=== PATIENT | male | born 1960 | race Caucasian/White ===

== ENCOUNTER 2024-12-09 14:25 | Outpatient (AMB) | payer OTHER, SELFPAY ==
--- NOTE | 2024-12-09 14:37 | MHC.OFFVIS ---
Vital Signs 12/09/24 14:52 Height 6 ft 2 in Weight 245 lb BMI 31.5 BP 160/88 H Blood Pressure Location Rt brachial Position Sitting Pulse 66 Pulse Source Pulse Oximeter Pulse Oximetry (%) 96 Oxygen Delivery Method Room Air Intake Visit Reasons: colo screening Intake Note: NEW PATIENT for repeat colo screening. Last colo > 10 years ago. Chief Complaint; C/O intermittent bloating, gas. Pt reports hx of GERD but has not had any issues in many years. 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 No additional sx or concerns at this time. [employer] Worker Required: No Accompanied by: Self / Same As Patient Allergies No Known Allergies Allergy (Verified 12/04/24 13:57) HPI HPI colo screening: Details: 64 year old? male with past medical history of hypertension is here today for pre colonoscopy screening.? Patient was sent to us by his PCP.? Last colonoscopy over 10 years ago. ? Patient denies any gastrointestinal symptoms in the past or at present.? Denies any personal or family history of gastrointestinal disease, colon polyps, or CRC.? Denies history of difficulty with sedation or anesthesia in the past.? Negative for history of sleep apnea.? Denies any history of cardiac, renal, pulmonary, or hepatic disease.?? No history of infectious? diseases like hepatitis A, B, C, HIV or tuberculosis.? Patient is not on any anticoagulation [facility] Medical History Squamous cell cancer of scalp and skin of neck HTN (hypertension) Basal cell carcinoma Exposure to potentially hazardous substance Chronic low back pain Surgical History H/O external ear surgery Social History Alcohol intake: current Comment: 2/3 drinks / every few days. Golf. Patient Tobacco Use Status: Former Tobacco user Use of substances other than those prescribed or required for medical reasons: Yes Substance Use Type: Marijuana Review of Systems Const Denies weight gain and Denies weight loss ENT Reports no additional complaints, Denies dysphagia and Denies odynophagia Card Reports no additional complaints Resp Reports no additional complaints GI Denies abdominal pain, Denies belching, Denies melena, Denies bloating, Denies change in bowel habits, Denies dysphagia, Denies excessive flatus, Denies dyspepsia, Denies heartburn, Denies diarrhea, Denies loose stools, Denies nausea, Denies odynophagia and Denies vomiting Reports no additional complaints Musc Reports no additional complaints Neuro Reports no additional complaints Psych Reports no additional complaints Endo Reports no additional complaints Physical Exam Const General: healthy appearing, no acute distress and well developed Nutritional Appearance: well nourished and obese Orientation/consciousness: patient oriented x3 Resp Effort & Inspection: normal respiratory effort, able to speak in complete sentences, no tracheal deviation and symmetric chest movement Auscultation: clear to auscultation bilaterally Cardio Rate: regular rate GI Inspection: Yes normal to inspection, No distended and Yes obesity Palpation (GI): Soft to palpation, not firm, nontender and No hepatosplenomegaly present Auscultation: normal bowel sounds General: Yes no CVA tenderness Back/Spine/Pelvis Back: no CVA tenderness Skin General skin exam: elasticity normal, turgor normal and dry skin Neuro General: patient oriented x3 Psych Appearance: grossly normal Mental Status: mental status grossly normal Assessment & Plan Assessment & Plan (1) Screen for colon cancer: Code(s): Z12.11 - Encounter for screening for malignant neoplasm of colon Plan Patient denies any GI, cardiac or respiratory symptoms.? Denies any issues with anesthesia in the past.? Denies any history of sleep apnea.? No history infectious diseases in the past or present.? Not on any anticoagulation therapy.? No family or personal history of colon cancer or polyps.? Patient denies melena, hematochezia, unintentional weight loss or ribbon like stools.? Discussed at length the pre-procedure,? prep, diet & medications as well as what to expect prior, during and after the procedure.?? Stressed the importance of good bowel prep.? Recommended the use of Vaseline or Calmoseptine OTC & baby wipes with bowel movements to promote comfort.? ?Patient verbalizes understanding and agrees to plan of care.? He was given the opportunity to ask questions and all questions answered.? We will see him after the procedure.? Medications: New bisacodyl (Dulcolax (bisacodyl)) take 4 tabs at noon the day before your colonoscopy 20 mg (4 x 5 mg) PO ONCE 1 day 4 tabs 0RF Z12.11 - Encounter for screening for malignant neoplasm of colon polyethylene glycol 3350 (Miralax) As directed by gastroenterology department at [facility] 238 grams PO ONCE 238 grams 0RF Z12.11 - Encounter for screening for malignant neoplasm of colon Coding Level of Care Code New Pt Level 3 (87969) Diagnoses Screen for colon cancer Z12.11 Time Spent (min) 40 Comment 30 minutes spent with patient and additional 10 minutes spent reviewing his records
[2024-12-09 14:52] VITALS: BP 160/88; PULSE 66; O2SAT 96; BMI 31.5
--- OUTSIDE RECORDS SUMMARY | 2024-12-09 17:17 | XMS_ITS | Continuity of Care Document ---
Author Name [facility] Organization [facility] Care Team Providers Care [employer] Department Head Name Role Phone [facility] Unavailable Unavailable Problems Combined list of problems from Department of Defense and Veterans Affairs facilities. It does not include entries that were removed or entered in error. 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 Aug 17, 2023 Entered By: CHAGO POLK Comment: s/p Demis x3 2022 at [facility] Diagnosis: ICD-10-CM F43.9 Reaction to severe stress, unspecified Active Diagnosis [facility] Diagnosis: ICD-10-CM M54.50 Low back pain, unspecified Active Diagnosis [facility] Diagnosis: ICD-10-CM C44.91 Basal cell carcinoma of skin, unspecified Active Diagnosis [facility] Diagnosis: ICD-10-CM F43.89 Other reactions to severe stress Active Diagnosis [facility] Diagnosis: ICD-10-CM F43.20 Adjustment disorder, unspecified Active Diagnosis [facility] Diagnosis: ICD-10-CM I10 Essential (primary) hypertension Active Diagnosis [facility] Diagnosis: ICD-10-CM F41.1 Generalized anxiety disorder Active Diagnosis [facility] Diagnosis: ICD-10-CM Z85.828 Personal history of other malignant neoplasm of skin Active Diagnosis [facility] Medications Combined list of outpatient medications from Department of Defense and Veterans Affairs facilities.Medications provided include 1) outpatient medications from the last 15 months, and 2) patient-reported medications. Medication Details Route Status Patient Instructions Prescription Expires Prescription Number Last Dispense Date Ordering Provider Order Date Order Qty Source AMLODIPINE BESYLATE 5MG TAB TAKE ONE TABLET BY MOUTH ONCE DAILY FOR BLOOD PRESSURE /HEART, DO NOT TAKE WITH GRAPEFRU IT JUICE ORAL ACTIVE 11/14/2025 [id number] FURCOLO,T GREG 2024 90 [facility] AMLODIPINE BESYLATE 5MG TAB TAKE ONE TABLET BY MOUTH ONCE DAILY FOR BLOOD PRESSURE /HEART, DO NOT TAKE WITH GRAPEFRU IT JUICE ORAL DISCONT INUED 11/15/2024 [id number] [facility] 2023 90 [facility] CYANOCOBALA MIN 500MCG TAB TAKE ONE TABLET BY MOUTH ONCE DAILY FOR PREVENTI ON OF VITAMIN B12 DEFICIEN CY ORAL ACTIVE 11/14/2025 [id number] 5 FURCOLO,T GREG 2024 100 [facility] [place] [facility] CYANOCOBALA MIN 500MCG TAB TAKE ONE TABLET BY MOUTH ONCE DAILY FOR PREVENTI ON OF VITAMIN B12 DEFICIEN CY ORAL DISCONT INUED 11/15/2024 [id number] [facility] AMMED JAWED 2023 100 [facility] FLUOROURACI L 5% CREAM,TOP APPLY A THIN LAYER TO FACE TWICE DAILY FOR 28 DAYS TOLERATE D. EXPECT REDNESS AND IRRITATI ON. TOPICA L 09/20/2024 [id number] [facility] A 2024 40 [place] IMIQUIMOD 5% CREAM,TOP,P KT,0.25GM APPLY A THIN FILM TOPICALL Y DIRECTED FOR SUPERFIC IAL BASAL CELL CARCINOM A APPLY 5 DAYS A WEEK, LEAVE ON FOR ~8 HOURS, THEN WASH OFF WITH MILD SOAP AND WATER FOR 6 WEEKS. APPLY 5 DAYS A WEEK, LEAVE ON FOR ~8 HOURS, THEN WASH OFF WITH MILD SOAP AND WATER FOR 6 WEEKS. TOPICA L 11/22/2024 [id number] [facility]ELIC[facility]AS TATUM 2023 48 [place] [facility] [place] [facility] LIDOCAINE 5% PATCH APPLY 1 PATCH TOPICALL Y ONCE DAILY FOR NERVE PAIN (LEAVE PATCH ON FOR 12 HOURS, THEN REMOVE PATCH) TOPICA L ACTIVE 11/14/2025 [id number] 5 FURCOLO,T GREG 2024 30 [facility] LIDOCAINE 5% PATCH APPLY 1 PATCH TOPICALL Y ONCE DAILY FOR NERVE PAIN (LEAVE PATCH ON FOR 12 HOURS, THEN REMOVE PATCH) TOPICA L DISCONT INUED 11/15/2024 [id number] [facility] AMMED JAWED 2023 30 [place] [facility] [place] TERBINAFINE HCL 1% CREAM,TOP APPLY A SMALL AMOUNT TOPICALL Y TWICE DAILY TOPICA L ACTIVE 11/14/2025 [id number] FURCOLO,T GREG 2024 60 [facility] [place] TERBINAFINE HCL 1% CREAM,TOP APPLY A SMALL AMOUNT TOPICALL Y TWICE DAILY TOPICA L DISCONT INUED 11/15/2024 [id number] [facility] AMMED JAWED 2023 60 [place] [facility] [place] [facility] TRAMADOL HCL 50MG TAB TAKE ONE TABLET BY MOUTH EVERY SIX HOURS NEEDED FOR PAIN ORAL 10/12/2024 [id number] CINDA AVERY 2024 12 [facility] IELD Immunizations Combined list of available immunizations from the Department of Defense and Veterans Affairs facilities. Immunization Series Date Given Administered By Site Reaction Lot Number CVX Code Drug Automobile Accessories Salesperson Status Comments Source TDAP 2022 CORTNEY CRUM LEFT DELTO ID [id number] complet ed [facility] [place] [facility] [place] [place] Results Combined list of recent chemistry, hematology and other laboratory results from Department of Defense and Veterans Affairs, ranging from 15 months to all on record, depending upon the facility. Order Name Results Value Reference Range Date Interpretation Specimen Comments Source BASIC METABOLIC PANEL (fasting) UREA NITROGEN [MASS/VOLUM E] IN SERUM OR PLASMA 14 mg/dL 7 - 25 11/13 Specimen Type: SERUM No comment entered. Ordering Provider: KINGSTON VILLANUEVA Report Released Date/Time: May 15, 2024 01:38 PM Reporting Lab: [facility] [place] [facility] [address] [address] Performing Lab: [facility] [place] [address] [address] [facility] [place] [facility] BASIC METABOLIC PANEL (fasting) GLUCOSE [MASS/VOLUM E] IN SERUM OR PLASMA 100 mg/dL 65 - 100 11/13 Specimen Type: SERUM No comment entered. Ordering Provider: KINGSTON VILLANUEVA Report Released Date/Time: May 15, 2024 01:38 PM Reporting Lab: [facility] [place] [facility] [address] [address] Performing Lab: [facility] [place] [facility] [address] [address] [facility] [place] [facility] BASIC METABOLIC PANEL (fasting) SODIUM [MOLES/VOLU ME] IN SERUM OR PLASMA 138 mmol/L 135 - 145 11/13 Specimen Type: SERUM No comment entered. Ordering Provider: KINGSTON VILLANUEVA Report Released Date/Time: May 15, 2024 01:38 PM Reporting Lab: [facility] [place] [facility] [address] [address] Performing Lab: [facility] [place] [address] [address] [facility] [place] [facility] BASIC METABOLIC PANEL (fasting) POTASSIUM [MOLES/VOLU ME] IN SERUM OR PLASMA 5.1 mmol/L 3.5 - 5.0 04/02 /2025 H Specimen Type: SERUM No comment entered. Ordering Provider: KINGSTON VILLANUEVA Report Released Date/Time: May 15, 2024 01:38 PM Reporting Lab: [place] [facility] [place] [address] [address] Performing Lab: [place] [facility] [place] [address] [address] [place] [facility] [place] [facility] BASIC METABOLIC PANEL (fasting) CHLORIDE [MOLES/VOLU ME] IN SERUM OR PLASMA 105 mmol/L 100 - 110 11/13 Specimen Type: SERUM No comment entered. Ordering Provider: KINGSTON VILLANUEVA Report Released Date/Time: May 15, 2024 01:38 PM Reporting Lab: [place] [facility] [address] [address] Performing Lab: [place] [facility] [address] [facility]RL TRN [facility]ITALUSE [facility] BASIC METABOLIC PANEL (fasting) CARBON DIOXIDE, TOTAL [MOLES/VOLU ME] IN SERUM OR PLASMA 25 meq/L 20 - 30 11/13 Specimen Type: SERUM No comment entered. Ordering Provider: KINGSTON VILLANUEVA Report Released Date/Time: May 15, 2024 01:38 PM Reporting Lab: [place] [facility] [place] [address] [address] Performing Lab: [place] [facility] [address] [facility] BASIC METABOLIC PANEL (fasting) CALCIUM [MASS/VOLUM E] IN SERUM OR PLASMA 9.1 mg/dL 8.5 - 10.2 11/13 Specimen Type: SERUM No comment entered. Ordering Provider: KINGSTON VILLANUEVA Report Released Date/Time: May 15, 2024 01:38 PM Reporting Lab: [place] [facility] [place] [address] [address] Performing Lab: [place] [facility] [address] [facility] [place] [facility] BASIC METABOLIC PANEL (fasting) CREATININE [MASS/VOLUM E] IN SERUM OR PLASMA 0.73 mg/dL 0.50 - 1.40 11/13 Specimen Type: SERUM No comment entered. Ordering Provider: KINGSTON VILLANUEVA Report Released Date/Time: May 15, 2024 01:38 PM Reporting Lab: [facility]ITALRST[facility]ENT[facility] BLOUNTN [address] [address] Performing Lab: [facility]OSPITALRST. VINCENT'[facility] BLOUNTN [facility] [address] [facility]ITALRST. [facility]INCENT'[facility] BLOUNTN [facility]ITALUSE [facility] BASIC METABOLIC PANEL (fasting) GLOMERULAR FILTRATION RATE/1.73 SQ M.PREDICTED [VOLUME RATE/AREA] IN SERUM, PLASMA OR BLOOD BY CREATININE- BASED FORMULA (CKD-EPI 2020) >90mL/ min 60 11/13 Specimen Type: SERUM No comment entered. Ordering Provider: KINGSTON VILLANUEVA Report Released Date/Time: May 15, 2024 01:38 PM Reporting Lab: [facility] [address] [address] Performing Lab: [facility] HOSPITALRST. VINCENT'S BLOUNTN [facility] [address] [facility] LIPID PANEL FASTING CHOLESTEROL [MASS/VOLUM E] IN SERUM OR PLASMA 191 mg/dL 11/13 Specimen Type: SERUM No comment entered. Ordering Provider: KINGSTON VILLANUEVA Report Released Date/Time: May 15, 2024 01:38 PM Reporting Lab: [facility]OSPITALRST. VINCENT'[facility] BLOUNTN [facility] [address] Performing Lab: [facility] HOSPITALRCRENSHAW COMMUNITY HOSPITALTRN [facility]ITALUSE[address] [address] [facility]N [facility] LIPID PANEL FASTING TRIGLYCERID E [MASS/VOLUM E] IN SERUM OR PLASMA 55 mg/dL 0 - 150 11/13 Specimen Type: SERUM No comment entered. Ordering Provider: KINGSTON VILLANUEVA Report Released Date/Time: May 15, 2024 01:38 PM Reporting Lab: [facility]OSPITALRST. VINCENT'[facility] BLOUNTN [facility] [address] Performing Lab: [facility]RL [facility] [place] [facility] [address] [address] [facility]ITALRL [facility] [place] [facility] LIPID PANEL FASTING CHOLESTEROL IN LDL [MASS/VOLUM E] IN SERUM OR PLASMA BY CALCULATION 115 mg/dL 0 - 129 11/13 Specimen Type: SERUM No comment entered. Ordering Provider: KINGSTON VILLANUEVA Report Released Date/Time: May 15, 2024 01:38 PM Reporting Lab: [facility]ITALRL [place] [place] [facility] [address] [address] Performing Lab: [place] [facility] [place] [facility] [address] [address] [facility]ITALRL TRN [place] [facility] LIPID PANEL FASTING CHOLESTEROL .TOTAL/CHOL ESTEROL IN HDL [MASS RATIO] IN SERUM OR PLASMA 2.9 11/13 Specimen Type: SERUM No comment entered. Ordering Provider: KINGSTON VILLANUEVA Report Released Date/Time: May 15, 2024 01:38 PM Reporting Lab: [facility]ITALRL [facility] [place] [address] [address] Performing Lab: [facility]RL [place] [place] [address] [address] [facility]OSPITALRCRENSHAW COMMUNITY HOSPITALTRN [place] [facility] LIPID PANEL FASTING CHOLESTEROL IN HDL [MASS/VOLUM E] IN SERUM OR PLASMA 65 mg/dL 40 - 60 11/13 H Specimen Type: SERUM No comment entered. Ordering Provider: KINGSTON VILLANUEVA Report Released Date/Time: May 15, 2024 01:38 PM Reporting Lab: [facility]ITALRL [place] [place] [address] [address] Performing Lab: [facility]ITALRL [facility] [place] [address] [address] [facility]ITALRL [facility] [place] [facility] LIVER FUNCTION PROTEIN [MASS/VOLUM E] IN SERUM OR PLASMA 8.0 g/dL 6.0 - 8.3 11/13 Specimen Type: SERUM No comment entered. Ordering Provider: KINGSTON VILLANUEVA Report Released Date/Time: May 15, 2024 01:38 PM Reporting Lab: [facility]ITALRL [facility] [place] [address] [address] Performing Lab: [facility]ITALRL [facility] [place] [facility] [address] [address] [facility]ITALRL W[facility] [place] [facility] LIVER FUNCTION ALBUMIN [MASS/VOLUM E] IN SERUM OR PLASMA BY BROMOCRESOL PURPLE (BCP) DYE BINDING METHOD 4.2 g/dL 3.5 - 5.0 11/13 Specimen Type: SERUM No comment entered. Ordering Provider: KINGSTON VILLANUEVA Report Released Date/Time: May 15, 2024 01:38 PM Reporting Lab: [facility]ITALRL [facility] [place] [facility] [address] [address] Performing Lab: [facility]OSPITALRL WSTRN [facility]ITALUSEMARY [facility] [address] [address] [facility]ITALRST. VINCENT'S BLOUNTN [facility]USE [facility] LIVER FUNCTION ALKALINE PHOSPHATASE [ENZYMATIC ACTIVITY/VO LUME] IN SERUM OR PLASMA 56 U/L 40 - 150 11/13 Specimen Type: SERUM No comment entered. Ordering Provider: KINGSTON VILLANUEVA Report Released Date/Time: May 15, 2024 01:38 PM Reporting Lab: [facility]OS[facility]ITALRL TRN [facility]ITALUSEMARY [facility] [address] [address] Performing Lab: [facility]ITALRL W[facility]N [facility]ITALUSEMARY [facility] [address] [address] [facility]ITALRST. VINCENT'S BLOUNTN [facility] LIVER FUNCTION ASPARTATE AMINOTRANSF ERASE [ENZYMATIC ACTIVITY/VO LUME] IN SERUM OR PLASMA BY WITH P-5'-P 21 U/L 5 - 34 11/13 Specimen Type: SERUM No comment entered. Ordering Provider: KINGSTON VILLANUEVA Report Released Date/Time: May 15, 2024 01:38 PM Reporting Lab: [facility]ITALRL [facility] [place] [facility] [address] [address] Performing Lab: [facility]OS[facility]ITALRL WSTRN [facility]PITALUSETS [facility] [address] [address] [facility]ITALRST. VINCENT'S BLOUNTN [facility]USE [facility] LIVER FUNCTION ALANINE AMINOTRANSF ERASE [ENZYMATIC ACTIVITY/VO LUME] IN SERUM OR PLASMA BY WITH P-5'-P 23 U/L 11/13 Specimen Type: SERUM No comment entered. Ordering Provider: KINGSTON VILLANUEVA Report Released Date/Time: May 15, 2024 01:38 PM Reporting Lab: [facility] [place] [facility] [address] [address] Performing Lab: [facility] [place] [facility] [address] [address] [place] [facility] [facility] LIVER FUNCTION BILIRUBIN.T OTAL [MASS/VOLUM E] IN SERUM OR PLASMA 0.4 mg/dL 0.2 - 1.2 11/13 Specimen Type: SERUM No comment entered. Ordering Provider: KINGSTON VILLANUEVA Report Released Date/Time: May 15, 2024 01:38 PM Reporting Lab: [facility] [place] [address] [address] Performing Lab: [facility] [place] [address] [address] [place] [facility] [place] [facility] BASIC METABOLIC PANEL (fasting) UREA NITROGEN [MASS/VOLUM E] IN SERUM OR PLASMA 9 mg/dL 7 - 25 05/15 Specimen Type: SERUM No comment entered. Ordering Provider: KINGSTON VILLANUEVA Report Released Date/Time: Apr 26, 2024 10:26 AM Reporting Lab: [facility] [place] [address] [address] Performing Lab: [facility] [place] [address] [address] [place] [facility] [place] [facility] BASIC METABOLIC PANEL (fasting) GLUCOSE [MASS/VOLUM E] IN SERUM OR PLASMA 87 mg/dL 65 - 100 05/15 Specimen Type: SERUM No comment entered. Ordering Provider: KINGSTON VILLANUEVA Report Released Date/Time: Apr 26, 2024 10:26 AM Reporting Lab: [facility] [place] [facility] [address] [address] Performing Lab: [facility] [place] [address] [address] [place] [facility] [place] [facility] BASIC METABOLIC PANEL (fasting) SODIUM [MOLES/VOLU ME] IN SERUM OR PLASMA 136 mmol/L 135 - 145 05/15 Specimen Type: SERUM No comment entered. Ordering Provider: KINGSTON VILLANUEVA Report Released Date/Time: Apr 26, 2024 10:26 AM Reporting Lab: [facility] [place] [facility] [address] [address] Performing Lab: [facility] [place] [facility] [address] [address] [place] [facility] [place] [facility] BASIC METABOLIC PANEL (fasting) POTASSIUM [MOLES/VOLU ME] IN SERUM OR PLASMA 4.3 mmol/L 3.5 - 5.0 05/15 Specimen Type: SERUM No comment entered. Ordering Provider: KINGSTON VILLANUEVA Report Released Date/Time: Apr 26, 2024 10:26 AM Reporting Lab: [facility] [place] [facility] [address] [address] Performing Lab: [place] [facility] [place] [address] [address] [place] [facility] [place] [facility] BASIC METABOLIC PANEL (fasting) CHLORIDE [MOLES/VOLU ME] IN SERUM OR PLASMA 103 mmol/L 100 - 110 05/15 Specimen Type: SERUM No comment entered. Ordering Provider: KINGSTON VILLANUEVA Report Released Date/Time: Apr 26, 2024 10:26 AM Reporting Lab: [facility] [place] [facility] [address] [address] Performing Lab: [place] [facility] [place] [facility] [address] [address] [place] [facility] [place] [facility] BASIC METABOLIC PANEL (fasting) CARBON DIOXIDE, TOTAL [MOLES/VOLU ME] IN SERUM OR PLASMA 24 meq/L 20 - 30 05/15 Specimen Type: SERUM No comment entered. Ordering Provider: KINGSTON VILLANUEVA Report Released Date/Time: Apr 26, 2024 10:26 AM Reporting Lab: [facility] [place] [facility] [address] [address] Performing Lab: [place] [facility] [place] [facility] [address] [address] [place] [facility] [place] [facility] BASIC METABOLIC PANEL (fasting) CREATININE [MASS/VOLUM E] IN SERUM OR PLASMA 0.75 mg/dL 0.50 - 1.40 05/15 Specimen Type: SERUM No comment entered. Ordering Provider: KINGSTON VILLANUEVA Report Released Date/Time: Apr 26, 2024 10:26 AM Reporting Lab: [facility]PITALRCRENSHAW COMMUNITY HOSPITALTRN [facility]USE[address] [address] Performing Lab: [facility]OSPITALRCRENSHAW COMMUNITY HOSPITALTRN [facility]ITALUSE[address] [address] [facility]N [facility] BASIC METABOLIC PANEL (fasting) GLOMERULAR FILTRATION RATE/1.73 SQ M.PREDICTED [VOLUME RATE/AREA] IN SERUM, PLASMA OR BLOOD BY CREATININE- BASED FORMULA (CKD-EPI 2020) >90mL/ min 60 05/15 Specimen Type: SERUM No comment entered. Ordering Provider: KINGSTON VILLANUEVA Report Released Date/Time: Apr 26, 2024 10:26 AM Reporting Lab: [facility]OSPITALRCRENSHAW COMMUNITY HOSPITALTRN MASSUSE[address] [address] Performing Lab: [facility]OS[facility]ITALRL TRN [facility]USE[address] [address] [facility] LIPID PANEL FASTING CHOLESTEROL [MASS/VOLUM E] IN SERUM OR PLASMA 183 mg/dL 05/15 Specimen Type: SERUM No comment entered. Ordering Provider: KINGSTON VILLANUEVA Report Released Date/Time: Apr 26, 2024 10:26 AM Reporting Lab: [facility]OSPITALRCRENSHAW COMMUNITY HOSPITALTRN MASSUSE[address] [address] Performing Lab: [facility]ITALRCRENSHAW COMMUNITY HOSPITALTRN [facility]USE[address] [address] [facility]N [facility] LIPID PANEL FASTING TRIGLYCERID E [MASS/VOLUM E] IN SERUM OR PLASMA 129 mg/dL 0 - 150 05/15 Specimen Type: SERUM No comment entered. Ordering Provider: KINGSTON VILLANUEVA Report Released Date/Time: Apr 26, 2024 10:26 AM Reporting Lab: [facility]OSPITALRCRENSHAW COMMUNITY HOSPITALTRN [facility]USE[address] [address] Performing Lab: [place] [facility] [place] [facility] [address] [address] [facility]OSPITALRL WSTRN [facility] ANNISTONCHUSE [facility] LIPID PANEL FASTING CHOLESTEROL IN LDL [MASS/VOLUM E] IN SERUM OR PLASMA BY CALCULATION 99 mg/dL 0 - 129 05/15 Specimen Type: SERUM No comment entered. Ordering Provider: KINGSTON VILLANUEVA Report Released Date/Time: Apr 26, 2024 10:26 AM Reporting Lab: [place] [facility] [place] [facility] [address] [address] Performing Lab: [place] [facility] [place] [facility] [address] [phone] [facility] LIPID PANEL FASTING CHOLESTEROL .TOTAL/CHOL ESTEROL IN HDL [MASS RATIO] IN SERUM OR PLASMA 3.2 05/15 Specimen Type: SERUM No comment entered. Ordering Provider: KINGSTON VILLANUEVA Report Released Date/Time: Apr 26, 2024 10:26 AM Reporting Lab: [place] [facility] [place] [facility] [address] [phone] Performing Lab: [place] [facility] [facility] [address] [phone] [facility] [place] [facility] LIPID PANEL FASTING CHOLESTEROL IN HDL [MASS/VOLUM E] IN SERUM OR PLASMA 58 mg/dL 40 - 60 05/15 Specimen Type: SERUM No comment entered. Ordering Provider: KINGSTON VILLANUEVA Report Released Date/Time: Apr 26, 2024 10:26 AM Reporting Lab: [place] [facility] [place] [facility] [address] [phone] Performing Lab: [place] [facility] [facility] [address] [phone] [facility] [place] [facility] HEPATITIS C ANTIBODY (HCV)-ARC HEPATITIS C VIRUS AB [PRESENCE] IN SERUM NON-RE ACTIVE 08/17 Specimen Type: SERUM Comment: Hep C Ab: No HCV antibody detected. If recent infection is suspected or other evidence suggests HCV infection, consider HCV nucleic acid testing Ordering Provider: TRISHA DAVILA Report Released Date/Time: May 15, 2023 09:47 AM Reporting Lab: [place] [facility] [place] [facility] [address] [phone] Performing Lab: [place] [facility] [place] [facility] [address] [phone] [facility] [place] [facility] HIV 1&2 Ag/Ab SCREEN HIV 1+2 AB+HIV1 P24 AG [PRESENCE] IN SERUM OR PLASMA BY IMMUNOASSAY NON-RE ACTIVE 08/17 Specimen Type: SERUM No comment entered. Ordering Provider: TRISHA DAVILA Report Released Date/Time: May 15, 2023 09:47 AM Reporting Lab: [facility] [place] [facility] [address] [address] Performing Lab: [facility] [place] [facility] [address] [address] [facility] LIPID PANEL FASTING CHOLESTEROL [MASS/VOLUM E] IN SERUM OR PLASMA 176 mg/dL 08/17 Specimen Type: SERUM No comment entered. Ordering Provider: TRISHA DAVILA Report Released Date/Time: May 15, 2023 09:47 AM Reporting Lab: [facility] [place] [facility] [address] [address] Performing Lab: [facility] [place] [facility] [address] [address] [facility] [place] [facility] LIPID PANEL FASTING TRIGLYCERID E [MASS/VOLUM E] IN SERUM OR PLASMA 85 mg/dL 0 - 150 08/17 Specimen Type: SERUM No comment entered. Ordering Provider: TRISHA DAVILA Report Released Date/Time: May 15, 2023 09:47 AM Reporting Lab: [facility] [place] [facility] [address] [address] Performing Lab: [facility] [place] [facility] [address] [address] [facility] [place] LIPID PANEL FASTING CHOLESTEROL IN LDL [MASS/VOLUM E] IN SERUM OR PLASMA BY CALCULATION 118 mg/dL 0 - 129 08/17 Specimen Type: SERUM No comment entered. Ordering Provider: TRISHA DAVILA Report Released Date/Time: May 15, 2023 09:47 AM Reporting Lab: [facility] [place] [facility] [address] [address] Performing Lab: [facility] [place] [facility] [address] [address] [facility] LIPID PANEL FASTING CHOLESTEROL .TOTAL/CHOL ESTEROL IN HDL [MASS RATIO] IN SERUM OR PLASMA 4.3 08/17 Specimen Type: SERUM No comment entered. Ordering Provider: TRISHA DAVILA Report Released Date/Time: May 15, 2023 09:47 AM Reporting Lab: [facility] [place] [facility] [address] [address] Performing Lab: [facility] [place] [facility] [address] [address] [facility] [place] [facility] LIPID PANEL FASTING CHOLESTEROL IN HDL [MASS/VOLUM E] IN SERUM OR PLASMA 41 mg/dL 40 - 60 08/17 Specimen Type: SERUM No comment entered. Ordering Provider: TRISHA DAVILA Report Released Date/Time: May 15, 2023 09:47 AM Reporting Lab: [facility] [place] [facility] [address] [address] Performing Lab: [facility] [place] [facility] [address] [address] [facility] [place] [facility] BASIC METABOLIC PANEL (fasting) UREA NITROGEN [MASS/VOLUM E] IN SERUM OR PLASMA 11 mg/dL 7 - 25 08/17 Specimen Type: SERUM No comment entered. Ordering Provider: TRISHA DAVILA Report Released Date/Time: May 15, 2023 09:47 AM Reporting Lab: [facility] [place] [facility] [address] [address] Performing Lab: [facility] [place] [facility] [address] [address] [facility] [place] [facility] BASIC METABOLIC PANEL (fasting) GLUCOSE [MASS/VOLUM E] IN SERUM OR PLASMA 88 mg/dL 65 - 100 08/17 Specimen Type: SERUM No comment entered. Ordering Provider: TRISHA DAVILA Report Released Date/Time: May 15, 2023 09:47 AM Reporting Lab: [facility] [place] [facility] [address] [address] Performing Lab: [facility] [place] [facility] [address] [address] [facility] [place] [facility] BASIC METABOLIC PANEL (fasting) SODIUM [MOLES/VOLU ME] IN SERUM OR PLASMA 137 mmol/L 135 - 145 08/17 Specimen Type: SERUM No comment entered. Ordering Provider: TRISHA DAVILA Report Released Date/Time: May 15, 2023 09:47 AM Reporting Lab: [facility] [place] [facility] [address] [address] Performing Lab: [facility] [place] [facility] [address] [address] [facility] [place] [facility] BASIC METABOLIC PANEL (fasting) POTASSIUM [MOLES/VOLU ME] IN SERUM OR PLASMA 4.3 mmol/L 3.5 - 5.0 08/17 Specimen Type: SERUM No comment entered. Ordering Provider: TRISHA DAVILA Report Released Date/Time: May 15, 2023 09:47 AM Reporting Lab: [facility] [place] [facility] [address] [address] Performing Lab: [facility] [place] [facility] [address] [address] [facility] [place] [facility] BASIC METABOLIC PANEL (fasting) CHLORIDE [MOLES/VOLU ME] IN SERUM OR PLASMA 102 mmol/L 100 - 110 08/17 Specimen Type: SERUM No comment entered. Ordering Provider: TRISHA DAVILA Report Released Date/Time: May 15, 2023 09:47 AM Reporting Lab: [facility] [place] [facility] [address] [address] Performing Lab: [facility] [place] [facility] [address] [address] [facility] [place] [facility] BASIC METABOLIC PANEL (fasting) CARBON DIOXIDE, TOTAL [MOLES/VOLU ME] IN SERUM OR PLASMA 26 meq/L 20 - 30 08/17 Specimen Type: SERUM No comment entered. Ordering Provider: TRISHA DAVILA Report Released Date/Time: May 15, 2023 09:47 AM Reporting Lab: [facility] [place] [address] [address] Performing Lab: [facility] [place] [facility] [address] [address] [facility] [place] [facility] BASIC METABOLIC PANEL (fasting) CREATININE [MASS/VOLUM E] IN SERUM OR PLASMA 0.73 mg/dL 0.50 - 1.40 08/17 Specimen Type: SERUM No comment entered. Ordering Provider: TRISHA DAVILA Report Released Date/Time: May 15, 2023 09:47 AM Reporting Lab: [facility] [place] [address] [address] Performing Lab: [facility] [place] [address] [address] [facility] [place] [facility] BASIC METABOLIC PANEL (fasting) GLOMERULAR FILTRATION RATE/1.73 SQ M.PREDICTED [VOLUME RATE/AREA] IN SERUM, PLASMA OR BLOOD BY CREATININE- BASED FORMULA (CKD-EPI 2020) >90mL/ min 60 08/17 Specimen Type: SERUM No comment entered. Ordering Provider: TRISHA DAVILA Report Released Date/Time: May 15, 2023 09:47 AM Reporting Lab: [facility] [place] [address] [address] Performing Lab: [facility] [place] [address] [address] [facility] [place] [facility] LIVER FUNCTION PROTEIN [MASS/VOLUM E] IN SERUM OR PLASMA 7.6 g/dL 6.0 - 8.3 08/17 Specimen Type: SERUM No comment entered. Ordering Provider: TRISHA DAVILA Report Released Date/Time: May 15, 2023 09:47 AM Reporting Lab: [facility] [place] [facility] [address] [address] Performing Lab: [facility] [place] [facility] [address] [address] [facility] [place] [facility] LIVER FUNCTION ALBUMIN [MASS/VOLUM E] IN SERUM OR PLASMA 4.2 g/dL 3.5 - 5.0 08/17 Specimen Type: SERUM No comment entered. Ordering Provider: TRISHA DAVILA Report Released Date/Time: May 15, 2023 09:47 AM Reporting Lab: [facility] [place] [facility] [address] [address] Performing Lab: [facility] [place] [facility] [address] [address] [facility] [place] [facility] LIVER FUNCTION ALKALINE PHOSPHATASE [ENZYMATIC ACTIVITY/VO LUME] IN SERUM OR PLASMA 54 U/L 40 - 150 08/17 Specimen Type: SERUM No comment entered. Ordering Provider: TRISHA DAVILA Report Released Date/Time: May 15, 2023 09:47 AM Reporting Lab: [facility] [place] [facility] [address] [address] Performing Lab: [facility] [place] [facility] [address] [address] [facility] [place] [facility] LIVER FUNCTION ASPARTATE AMINOTRANSF ERASE [ENZYMATIC ACTIVITY/VO LUME] IN SERUM OR PLASMA 22 U/L 5 - 34 08/17 Specimen Type: SERUM No comment entered. Ordering Provider: TRISHA DAVILA Report Released Date/Time: May 15, 2023 09:47 AM Reporting Lab: [facility] [place] [facility] [address] [address] Performing Lab: [facility] [place] [facility] [address] [address] [facility] [place] [facility] LIVER FUNCTION ALANINE AMINOTRANSF ERASE [ENZYMATIC ACTIVITY/VO LUME] IN SERUM OR PLASMA 16 U/L 08/17 Specimen Type: SERUM No comment entered. Ordering Provider: TRISHA DAVILAED Report Released Date/Time: May 15, 2023 09:47 AM Reporting Lab: [facility] [place] [address] [address] Performing Lab: [facility] [place] [address] [address] [facility] [place] [facility] LIVER FUNCTION BILIRUBIN.T OTAL [MASS/VOLUM E] IN SERUM OR PLASMA 0.5 mg/dL 0.2 - 1.2 08/17 Specimen Type: SERUM No comment entered. Ordering Provider: TRISHA DAVILA Report Released Date/Time: May 15, 2023 09:47 AM Reporting Lab: [facility] [address] [address] Performing Lab[facility] [place] [facility] [address] [address] [facility] [place] [facility] Vital Signs Combined list of inpatient and outpatient Vital Signs from Department of Defense and Veterans Affairs, ranging from 12 months to all on record, depending upon the facility. Vital Sign Value Date Comments Source SYSTOLIC BLOOD PRESSURE 152 11/14/19 25 09:05:07 [facility] DIASTOLIC BLOOD PRESSURE 93 025 09:05:07 [facility] PULSE OXIMETRY 96 11/13/2024 09:05:07 [facility] WEIGHT 252 11/13/2024 09:05:07 [facility] BMI 32 kg/m2 11/13/2024 09:05:07 [facility] PAIN 3 11/13/2024 09:05:07 [facility] TEMPERATURE 97.3 11/13/2024 09:05:07 [facility] PULSE 64 11/13/2024 09:05:07 [facility] RESPIRATION 16 11/13/2024 09:05:07 [facility] SYSTOLIC BLOOD PRESSURE 140 05/15/20 24 13:05:17 [facility] DIASTOLIC BLOOD PRESSURE 94 024 13:05:17 [facility] PULSE OXIMETRY 98 05/15/2024 13:05:17 [facility] WEIGHT 243 05/15/2024 13:05:17 [facility] BMI 31 kg/m2 05/15/2024 13:05:17 [facility] PAIN 0 05/15/2024 13:05:17 [facility] TEMPERATURE 98.4 05/15/2024 13:05:17 [facility] PULSE 60 05/15/2024 13:05:17 [facility] RESPIRATION 16 05/15/2024 13:05:17 [facility] SYSTOLIC BLOOD PRESSURE 158 04/01/20 24 08:58:15 [facility] DIASTOLIC BLOOD PRESSURE 88 024 08:58:15 [facility] PULSE 63 04/01/2024 08:58:15 [facility] RESPIRATION 18 04/01/2024 08:58:15 [facility] Encounters Combined list of: 1) Encounters from Department of Veterans Affairs facilities going backup to the last 18 months, not all VA inpatient encounters are included; 2) Encounters from the Department of Defense facilities going backup to 280 months. Location Location Details Encounter Type Encounter Number Reason For Visit Attending Provider ADM Date DC Date Status Disposition Source [facility] Encounter [id number] 06/28 [facility] OFF[facility] O/P EST MOD 30 MIN [id number] Diagnos is: ICD-10- CM Z85.828 Persona l history of other maligna nt neoplas m of skin TATUM POLK 08/17 [facility] [id number] 08/17 [facility]counter [id number] 08/25 [facility] [id number] 09/21 [facility] En[facility] [id number] 10/31 [facility] En[facility] [id number] 11/14 [facility] OFF[facility] O/P EST MOD 30 MIN [id number] Diagnos is: ICD-10- CM I10 Essenti al (primar y) hyperte nsion GIOVANNI,DEMIA MMED JAWED 11/14 [facility] OFF[place] HI 40 MIN [id number] Diagnos is: ICD-10- CM C44.91 Basal cell carcino ma of skin, unspeci TATUM Constantino 11/21 [facility] OFF[facility] O/P EST HI 40 MIN [id number] Diagnos is: ICD-10- CM C44.91 Basal cell carcino ma of skin, unspeci TATUM Constantino 02/27 [facility] PSYTX W PT 30 MINUTES [id number] 1. Diagnos is: ICD-10- CM F41.1 General ized anxiety disorde r LEA SILVESTRE CONROY 03/11 [facility] En[facility] [id number] 1.03/13 [facility] En[facility] [id number]/21 [facility] OFF/OP EST DECEMBER X REQ PHY/QHP [id number] 1. Diagnos is: ICD-10- CM I10 Essenti al (primar y) hyperte nsion Osmar CHAVEZ H 04/01 [facility] [id number] 1.04/03 [facility] PSYCH DIAGNOSTIC EVALUATION [id number] 1. Diagnos is: ICD-10- CM F43.20 Adjustm ent disorde r, unspeci fied NAY PICKERING 04/08 [facility] En[facility] [id number] 1. NAY PICKERING 04/08 [facility] En[facility] [id number] NAY PICKERING 04/08 [facility] [id number] 05/03 [facility] PSYCH DIAGNOSTIC EVALUATION [id number] Diagnos is: ICD-10- CM F43.9 Reactio n to severe stress, unspeci fied JAIR MGER N 05/03 [facility] OFFICE O/P EST MOD 30 MIN [id number] Diagnos is: ICD-10- CM M54.50 Low back pain, unspeci fied FURCOLO,TI NA 05/15 [facility] HC PRO PHONE CALL 21-30 MIN [id number] Diagnos is: ICD-10- CM F43.9 Reactio n to severe stress, unspeci fied JAIR MG IFNUBIA N 05/16 [facility] HC PRO PHONE CALL 5-10 MIN [id number] Diagnos is: ICD-10- CM F43.89 Other reactio ns to severe stress JAIR MG IFER N 05/24 [facility] En[facility] [id number] 06/07 [facility] PSYTX W PT 45 MINUTES [id number] Diagnos is: ICD-10- CM F43.89 Other reactio ns to severe stress JAIR MG IFNUBIA N 06/14 [facility] En[facility] [id number] 08/21 [facility] OFFICE O/P EST MOD 30 MIN [id number] Diagnos is: ICD-10- CM C44.91 Basal cell carcino ma of skin, unspeci fied TATUM POLK 08/27 [facility] En[facility] [id number] 09/11 [facility] En[facility] [id number] 09/12 [facility] PSYTX W PT 45 MINUTES [id number] Diagnos is: ICD-10- CM F43.9 Reactio n to severe stress, unspeci fied Manuel FISCHER 10/11 [facility] PSYTX W PT 45 MINUTES [id number] Diagnos is: ICD-10- CM F43.9 Reactio n to severe stress, unspeci fied Manuel FISCHER 10/16 [facility] En[facility] [id number] Manuel FISCHER 10/16 [facility] En[facility] [id number] 10/23 [facility] En[facility] [id number] 10/24 [facility] PSYTX W PT 45 MINUTES [id number] Diagnos is: ICD-10- CM F43.9 Reactio n to severe stress, unspeci fied Manuel FISCHER 10/25 [facility] En[facility] [id number] Manuel FISCHER 10/25 [facility] PSYTX W PT 45 MINUTES [id number] Diagnos is: ICD-10- CM F43.9 Reactio n to severe stress, unspeci fied Manuel FISCHER 10/30 [facility] En[facility] [id number] Manuel FISCHER 10/30 [facility] Encounter [id number] 11/01 [facility] PSYTX W PT 45 MINUTES [id number] Diagnos is: ICD-10- CM F43.9 Reactio n to severe stress, unspeci fied Manuel FISCHER 11/06 [facility] Outpatient [facility]counter [id number] 11/13 [facility] OFFICE O/P EST MOD 30 MIN [id number] Diagnos is: ICD-10- CM M54.50 Low back pain, unspeci fied FURCOLO,TI NA 11/13 [facility] PSYTX W PT 45 MINUTES [id number] Diagnos is: ICD-10- CM F43.9 Reactio n to severe stress, unspeci fied Manuel FISCHER 11/18 [place] [facility] [place] [facility] [place] [facility] Outpatient Encounter [id number] Manuel FISCHER 11/18 [place] [facility] [place] [facility] Social History Combined list of available smoking, tobacco, and other social history from Department of Defense and Veterans Affairs facilities. Social History Type Response Date Comment Sour e Tobacco smoking status NHIS [facility] FORMER USER 05/15/2024 [facility] [place] [facility] of [facility] [place] [facility] [place] [facility] History of tobacco use [place]-[facility] FORMER US[place] 05/08/2023 [place] [facility] [place] [facility] Plan of Care List of future care activities from Department of Veterans Affairs facilities. Additional future care activities may be listed in the Assessment and Plan section. Date/Time Care Activity Care Activity Detail Facili ty 12/09/2024 AMBULATORY - NONE AMBULATORY - NONE [facility] [place] [facility]
== END 2024-12-09 15:08 | disposition home or self-care (01) ==
LOC: HO.HGI 14:26
PROVIDERS: PCP Internal Medicine; Referring Provider Internal Medicine; Visit Provider Nurse Practitioner Family
DX: Z01.818 Encounter for other preprocedural examination (principal); Z12.11 Encounter for screening for malignant neoplasm of colon
CPT/HCPCS: S0285